=== PATIENT | male | born 1995 | race Caucasian/White ===

== ENCOUNTER 2019-08-07 22:34 | Emergency (ER) | payer BC, OTHER ==
[2019-08-07] MEDS ORDERED: Loperamide 2 MG Cap PO ONE (22:49)
[2019-08-07] MEDS ORDERED: Dicyclomine 10 MG Cap PO ONE (22:49)
[2019-08-07] MEDS ORDERED: Ondansetron 4 MG Tab.DIS PO ONE (22:49)
--- NOTE | 2019-08-07 23:24 | EDM.PDOC ---
ED HPI GENERAL MEDICAL PROBLEM - General Chief Complaint: Abdominal Pain Stated Complaint: ABDOMINAL PAIN Time Seen by Provider: 08/07/19 22:45 Source of Information: Reports: Patient, Significant Other - History of Present Illness INITIAL COMMENTS - FREE TEXT/NARRATIVE: The patient is a healthy 24-year-old male who presents to the ER for copious amounts of nausea vomiting and diarrhea and periumbilical abdominal cramping pain. This started approximately 5 hours prior to arrival and he has been having trouble keeping anything down. No fevers, no dysuria, no back pain, no other acute complaints. abdomen Pain Score (Numeric/FACES): 8 - Related Data Allergies Allergy/AdvReac Type Severity Reaction Status Date / Time No Known Allergies Allergy Verified 08/07/19 22:48 Home Meds: Home Meds Ondansetron [Zofran ODT] 4 mg PO Q4H PRN 5 Days #20 tab.dis 08/07/19 [Rx] Past Medical History - Past Health History Medical/Surgical History: Denies Medical/Surgical History - Infectious Disease History Infectious Disease History: Reports: Chicken Pox Social & Family History - Family History Family Medical History: Noncontributory - Tobacco Use Smoking Status *Q: Current Every Day Smoker Years of Tobacco use: 2 Packs/Tins Daily: 0.5 - Caffeine Use Caffeine Use: Reports: Coffee - Recreational Drug Use Recreational Drug Use: No ED ROS GENERAL - Review of Systems Review Of Systems: See Below (Positive for nausea vomiting diarrhea, positive for abdominal pain, negative for dysuria, negative for fevers, negative for chills, all other Positives and pertinent negatives as per HPI. All other pertinent systems were reviewed and are negative) ED EXAM, GI/ABD - Physical Exam Exam: See Below Text/Narrative:: Constitutional: Nontoxic but looks like he does not feel well HEENT.: Normocephalic, Atraumatic, PERRL, EOMI, External ears are atraumatic, Oropharynx clear and moist without lesions or masses, nares are patent without epistaxis Neck: Normal range of motion, Trachea Midline, No stridor Respiratory.: No respiratory distress, No tachypnea, Lungs Clear to Auscultation bilaterally without wheezes, rales, or rhonchi Cardiovascular.: Regular rate and Rhythm without murmurs, rubs, or gallops, good peripheral perfusion GI: Abdomen soft and nondistended without any reproducible tenderness, no masses , no rebound, rigidity, or guarding Genital Urinary: Deferred Musculoskeletal: Good range of motion. All 4 extremities present and atraumatic , no edema Back: Full Range of Motion Skin: Warm, Dry, Color is ethnicity appropriate, No acute rash. Lymphatic: No lymphadenopathy noted Neurological: Alert, Awake and oriented x 3, No focal deficits noted appreciate , GCS 15 Psych: Affect, Judgement, mood normal Course - Vital Signs Text/Narrative:: Differential diagnosis is extensive and includes ascending cholangitis, choledocholithiasis, pancreatitis, adult intussusception, adult volvulus, gastroenteritis, others Given the entire clinical scenario, I felt this is most likely some type of infectious gastroenteritis and the patient was given Zofran ODT 4 mg tablet and he fell asleep and feels much better. Abdominal exam continues to have no reproducible pain and thus the patient will be discharged with a prescription for Zofran and a note for work. Last Recorded V/S: Last Vital Signs Temp 36.4 C 08/07/19 22:40 Pulse 61 08/07/19 22:40 Resp 18 08/07/19 22:40 BP 142/88 H 08/07/19 22:40 Pulse Ox 100 08/07/19 22:40 - Orders/Labs/Meds Meds: Medications Discontinued Medications Generic Name Dose Route Start Last Admin Trade Name Freq PRN Reason Stop Dose Admin Dicyclomine HCl 20 mg 08/07/19 22:49 08/07/19 23:00 Bentyl PO 08/07/19 22:50 20 mg ONETIME ONE Administration Loperamide HCl 4 mg 08/07/19 22:49 08/07/19 22:59 Imodium PO 08/07/19 22:50 4 mg ONETIME ONE Administration Ondansetron HCl 4 mg 08/07/19 22:49 08/07/19 23:00 Zofran Odt PO 08/07/19 22:50 4 mg ONETIME ONE Administration Departure - Departure Time of Disposition: 23:56 Disposition: Home, Self-Care 01 Condition: Good Clinical Impression: Gastroenteritis - Discharge Information *PRESCRIPTION DRUG MONITORING PROGRAM REVIEWED*: Not Applicable *COPY OF PRESCRIPTION DRUG MONITORING REPORT IN PATIENT JIN: Not Applicable Instructions: Nausea and Vomiting, Adult, [id number] Referrals: PCP,None [Primary Care Provider] - Forms: ED Department Discharge Sepsis Event Note - Evaluation Sepsis Screening Result: No Definite Risk - Focused Exam Vital Signs: Vital Signs Temp Pulse Resp BP Pulse Ox 08/07/19 22:40 36.4 C 61 18 142/88 H 100 Date Exam was Performed: 08/07/19 Time Exam was Performed: 23:54
== END 2019-08-08 00:07 | disposition home or self-care (01) ==
LOC: MW.ED 22:34
DX: K52.9 Noninfective gastroenteritis and colitis, unspecified (principal); F17.210 Nicotine dependence, cigarettes, uncomplicated
CPT/HCPCS: 99283; A9270